=== PATIENT | female | born 1955 | race Caucasian/White ===

== ENCOUNTER 2018-05-12 06:02 | Day surgery (SDC) | payer OTHER, BC ==
[2018-05-12] MEDS ORDERED: LABETALOL HCL 20MG INJ IV (07:30)
[2018-05-12] MEDS ORDERED: PROPOFOL 20 ML (07:30)
[2018-05-12] MEDS ORDERED: hydrALAzine 20 MG INJ IV (07:30)
[2018-05-12] MEDS ORDERED: ONDANSETRON 4 MG INJ IV (07:30)
[2018-05-12] MEDS ORDERED: FENTAnyl 50 MCG/ML VIAL (07:31)
== END 2018-05-12 11:06 | disposition home or self-care (01) ==
LOC: GIL 06:02
DX: K29.30 Chronic superficial gastritis without bleeding (principal); K64.4 Residual hemorrhoidal skin tags; E11.9 Type 2 diabetes mellitus without complications; I10 Essential (primary) hypertension; E78.5 Hyperlipidemia, unspecified; M06.9 Rheumatoid arthritis, unspecified; D50.9 Iron deficiency anemia, unspecified
CPT/HCPCS: 43239; 82962; 88305; 88312